=== PATIENT | male | born 1980 | race Hispanic/Latino ===

== ENCOUNTER 2020-01-14 03:05 | Observation (INO) ==
[2020-01-14] MEDS ORDERED: DILTIAZEM HCL 5 MG/ML VIAL IV ONE ×3 (03:15→03:31)
--- NOTE | 2020-01-14 03:23 | ERNOTE ---
Neuro HPI ER Record Presenting Symptoms: other - seizure activity Time Seen by Provider: 01/14/20 03:11 Source: patient, EMS Exam Limitations: no limitations Immunizations: IMMUNIZATION HX Immunizations Up to Date Yes History of Influenza Vaccine No Hx Pneumococcal Vaccination No Allergies/Adverse Reactions: Allergies Allergy/AdvReac Type Severity Reaction Status Date / Time No Known Allergies Allergy Verified 01/14/20 03:16 Home Medications: HOME MEDICATIONS NK 01/14/20 [Last Taken Unknown] - History of Present Illness Narrative: EMS was called out to her residence with a 39-year-old male with seizure-like activity. Upon arrival the patient was confused but soon began to be more alert and awake. The time he arrived to our facility he was alert and awake, oriented x4. Patient cannot give us any details of the episode. Onset: sudden onset Severity: moderate - Character of Deficits Baseline Cognition: Present: alert, oriented x 4 Baseline Gait: Present: walks w/o assistance Associated Symptoms: Reports: none Review of Systems - Review of Systems Constitutional: Absent: recent illness, fever, chills EYE: Absent: vision changes ENT: Absent: nose congestion, nasal drainage Respiratory: Absent: shortness of breath, cough Cardiology: Present: palpitations. Absent: chest pain Gastrointestinal/Abdominal: Absent: nausea, vomiting Musculoskeletal: Absent: back pain, muscle pain Skin: Absent: rash Neurological: Present: See HPI. Absent: headache, dizziness/light-headedness Endocrine: Absent: excessive sweating Medical History (Last Reviewed 01/14/20 @ 03:22 by Krish Cardozo DO) Generalized anxiety disorder (Chronic) Onset Date: Unknown Major depression (Chronic) Onset Date: Unknown Alcohol dependence (Chronic) Onset Date: Unknown Anxiety Onset Date: Unknown Hypertension Onset Date: Unknown Outbursts of anger Onset Date: Unknown Depression Onset Date: Unknown Gout Onset Date: Unknown Sarcoidosis Onset Date: Unknown Bruised ribs Onset Date: Unknown 12/01 Fall (on) (from) other stairs and steps, sequela Onset Date: Unknown 11/2018 Suicidal behavior with attempted self-injury Onset Date: Unknown "slit wrist" 05/1999 and 11/2014 Surgical History: Surgical History (Last Reviewed 01/14/20 @ 03:22 by Krish Cardozo DO) No pertinent past surgical history Family History: Family History (Last Reviewed 01/14/20 @ 03:22 by Krish Cardozo DO) Mother Hypertension Diabetes FHx: mental illness Father Hypertension FHx: mental illness Grandfather Hypertension maternal Heart disease maternal Diabetes maternal CVA (cerebral vascular accident) paternal FHx: mental illness maternal Grandmother Hypertension maternal Heart disease maternal Diabetes maternal CVA (cerebral vascular accident) maternal and paternal Sister Heart disease FHx: mental illness Brother Heart disease Other Depression Social History: (Last Reviewed 01/14/20 @ 03:22 by Krish Cardozo DO) Social History: longterm: No Marital status: Single lives independently: No household members: family number of children: 0 number of grandchildren: 0 current occupational status: employed current occupation: odd jobs Highest education level completed: GED or equivalent Service: No Tobacco: Smoking Status: Current every day smoker Alcohol: alcohol intake: current Alcohol type: hard liquor Substance Use: substance use type: marijuana, former substance user Dietary Habits: caffeine: Yes Physical Exam - Physical Exam General Appearance: Present: wd/wn, alert, no apparent distress Head Exam: Present: normal inspection, no evidence of injury Eye Exam: Normal inspection: bilateral, PERRL: bilateral, EOMI: bilateral Ears, Nose, Throat: Present: normal except - - Left side of tongue has 2 bite ardon that are superficial, no active bleeding., normal pharynx Neck: Present: normal inspection, nontender, supple, full range of motion Respiratory: Present: no respiratory distress, no accessory muscle use, chest nontender, lungs clear Cardiovascular/Chest: Present: no murmur, tachycardia Gastrointestinal/Abdominal: Present: normal bowel sounds, nontender, nondistended, soft Back Exam: Present: normal inspection, normal range of motion, no vertebral tenderness Extremity Exam: Present: normal inspection, normal range of motion, no edema Neurological Exam: Present: alert, oriented, normal mood/affect, no motor/sensory deficits Skin Exam: Present: normal color, warm/dry Lymphatic Exam: Present: no adenopathy Sushant Coma Scale - Assess Eye Opening: Spontaneous Motor: Obeys Commands Verbal: Oriented - Total Coma Scale Total: 15 Progress - Results and Orders Patient's Lab Results:: I have reviewed the patient's lab results. Results and Orders: Laboratory Tests 01/14/20 01/14/20 01/14/20 03:20 03:20 03:20 WBC 5.4 Hgb 14.8 Hct 43.8 Plt Count 120 L D-Dimer 2.14 H Sodium 131 L Potassium 3.0 L Chloride 90 L Carbon Dioxide 17.9 L Anion Gap 26.1 H BUN 4 L Creatinine 0.97 Est GFR (Non-Af Amer) 91 D Random Glucose 136 H Calcium 9.4 Total Bilirubin 0.7 AST 256 H ALT 109 H Alkaline Phosphatase 191 H Troponin I Less than 0.017 Total Protein 8.6 H Albumin 3.7 Salicylates Less than 2.8 L Acetaminophen Less than 0.2 L Ethyl Alcohol 18.0 H - Vital Signs Patient's Vital Signs:: I have reviewed the patient's vital signs. Vital Signs: Vital Signs 01/14/20 03:06 Temperature 36.6 C Pulse Rate 103 H Respiratory Rate 16 Blood Pressure 155/96 H - EKG EKG #1 EKG: atrial fibrillation, ST depression EKG read: Interp. by hi - CT/Ultrasound CT/Ultrasound Narrative: CT head without: No acute abnormalities of the brain. CTA chest: 1. No thoracic aortic aneurysm or dissection noted. 2. No central or peripheral pulmonary embolus noted. 3. No pericardial effusion. 4. Small focal infiltrate left lower lobe. No pleural effusions. 5. Hepatomegaly with changes of prominent fatty metamorphosis of the liver - Progress/Reassessment Chief Complaint: Seizure Activity Progress:: Improved Progress Note-Subjective: 01/14/20 05:39 Initially got some rate control with Cardizem and Cardizem drip down around 110 -120. His heart rate began going back up and we gave a initial loading dose of digoxin. Patient's heart rate seemed to be going up and was found to be shaking and possibly going through delirium tremors. Patient was given Ativan. Patient did admit that he usually drinks whiskey every day and that he was trying to taper down on his drinking by drinking only beer but was only started on his first beer when this happened 01/14/20 06:[address] Gee he agrees to accept the patient for admission Departure Clinical Impression: Atrial fibrillation with RVR Alcohol withdrawal Qualifiers: Complication of substance-induced condition: uncomplicated Qualified Code(s): F10.230 - Alcohol dependence with withdrawal, uncomplicated - Departure Disposition: Still a patient Condition: Fair
[2020-01-14 03:29] LABS: Hematocrit 43.8 % (42.0-52.0); Hemoglobin 14.8 gm/dL (13.5-18.0); Mean Corpuscular Hemoglobin 31.8 pg (27-31); Mean Corpuscular Hgb Conc 33.8 g/dl (32-36); Mean Platelet Volume 9.2 fl (8-11.3); Neutrophil # 2.9 K/mm3 (1.3-6.0); Neutrophil % 52.4 % (42-75.0); Platelet Count 120 K/mm3 (150-450); Red Blood Count 4.66 M/mm3 (4.7-6.0); Red Cell Distribution Width 15.1 % (11.5-14.0); White Blood Count 5.4 K/mm3 (4.0-10.5)
[2020-01-14] MEDS: DILTIAZEM HCL 125 MG in DEXTROSE 5 % IN WATER 100 ML IV PRN ×4 (03:43→13:06)
[2020-01-14 03:46] LABS: ALT 109 U/L (19-67); AST 256 U/L (0-48); Albumin * 3.7 gm/dl (3.4-5.0); Alkaline Phosphatase * 191 U/L (50-170); Anion Gap 26.1 mmol/L (6.8-13.8); BUN/Creatinine Ratio 4.1 (9.0-21.6); Bilirubin, Total 0.7 mg/dL (0.0-1.1); Blood Urea Nitrogen 4 mg/dL (6-23); Ca. Corrected For Albumin 9.3 mg/dL (8.4-10.2); Calcium * 9.4 mg/dL (7.9-10.9); Carbon Dioxide 17.9 mmol/L (24-32.6); Chloride 90 mmol/L (97-106); Glucose * 136 mg/dL (70-110); Salicylate Less than 2.8 mg/dL (2.8-20.0); Sodium 131 mmol/L (132-142); Total Protein 8.6 gm/dL (6.2-8.2)
[2020-01-14 03:47] LABS: Troponin I Less than 0.017 ng/mL (0.00-0.10)
[2020-01-14 04:31] LABS: Urine Bilirubin Negative (NEGATIVE); Urine Blood 25 /ul (NEGATIVE); Urine Ketone Negative (NEGATIVE); Urine Nitrite Negative (NEGATIVE); Urine Protein 15 mg/dL (NEGATIVE); Urine Urobilinogen Normal (NORMAL); Urine pH 7.5 pH (5.0-7.0)
[2020-01-14 04:39] LABS: Urine Appearance Clear (CLEAR); Urine Bacteria None Seen; Urine Color Yellow; Urine RBC None Seen /hpf (0-5); Urine WBC None Seen /hpf (0-5)
[2020-01-14 04:44] LABS: Cocaine Ur Negative (NEGATIVE); Urine Barbiturate Negative (NEGATIVE); Urine Benzodiazepines Negative (NEGATIVE); Urine Opiates Negative (NEGATIVE); Urine PCP Negative (NEGATIVE); Urine THC Negative (NEGATIVE)
[2020-01-14] MEDS ORDERED: DIGOXIN 0.25 MG/ML AMPUL IV ONE (05:04)
[2020-01-14] MEDS ORDERED: METOPROLOL TARTRATE 1 MG/ML AMPUL IV ONE ×3 (05:39→06:25)
[2020-01-14] MEDS ORDERED: LORazepam 2 MG/ML DISP.SYRIN IV ONE (05:42)
[2020-01-14] MEDS ORDERED: LORazepam 2 MG/ML DISP.SYRIN IV PRN ×3 (05:48)
[2020-01-14] MEDS: LORazepam 1 MG TABLET PO SCH ×3 (06:22→17:44)
[2020-01-14] MEDS: MULTIVIT INFUSN,ADULT 4,VIT K 10 ML, THIAMINE HCL 100 MG in NORMAL SALINE 1,000 ML IV SCH (06:22)
[2020-01-14] MEDS ORDERED: ENOXAPARIN SODIUM 100 MG/ML SYRG SC SCH (06:45)
[2020-01-14] MEDS ORDERED: FLU VACC QS2020-21(6MOS UP)/PF 60 MCG/0.5 ML SYRINGE IM ONE ×2 (07:53→09:00)
--- NOTE | 2020-01-14 08:30 | HP ---
Chief Complaint - Chief Complaint Date of Service: 01/14/20 Time of Service: 08:30 Chief Complaint: possible seizure activity History of Present Illness: Rickie Govea is a 39-year-old white male with past medical history significant for major depression, generalized anxiety disorder, hypertension, sarcoidosis who was brought to the emergency room by EMS early this morning of 01/14/2020 for possible seizure activity. As per his mother on the emergency room notes they heard the patient shouting and when they went to the room she saw him choking on his saliva and got stiff and unresponsive for about 10 minutes. He was having also tremors. As per EMS notes he had shakiness and had blood in his mouth. The patient says that he started drinking at the age of 14. He was up to a gallon of vodka a day and decided to detox himself about 2 months ago and started drinking only beers. As per nurse's notes he also stopped his medications that was prescribed by his psychologist. He has been having on and of palpitations that would go away when he starts drinking. Last night however he felt that his heart was jumping out of his chest and thumping so loud that he thought he was having a heart attack. When he got to the emergency room the patient was already awake alert oriented x3 but was found to have atrial fibrillation with rapid ventricular response of 170. His blood pressure went up as 178/103. He was started on Cardizem boluses x2 and IV is Cardizem drip. His hemoglobin was 14.8, white blood cell count of 5.4, platelet of 120, potassium of 3, AST/ ALT of 256 and 109, alkaline phosphatase of 191, total protein of 8.6, normal BUN/creatinine. His d-dimer was elevated and so CT scan of the chest following PE protocol was done and it was negative, it did show a patchy infiltrates, correlate for viral pneumonia or central granulomatous disease like sarcoidosis. His head CT scan showed cortical atrophy which is significant for his age but no acute intracranial process. He was given IV Ativan and was admitted to the floor for further evaluation and treatment. Medical History (Last Reviewed 01/14/20 @ 07:37 by Jude Cisneros RN) Generalized anxiety disorder (Chronic) Onset Date: Unknown Major depression (Chronic) Onset Date: Unknown Alcohol dependence (Chronic) Onset Date: Unknown Anxiety Onset Date: Unknown Hypertension Onset Date: Unknown Outbursts of anger Onset Date: Unknown Depression Onset Date: Unknown Gout Onset Date: Unknown Sarcoidosis Onset Date: Unknown Bruised ribs Onset Date: Unknown 12/01 Fall (on) (from) other stairs and steps, sequela Onset Date: Unknown 11/2018 Suicidal behavior with attempted self-injury Onset Date: Unknown "slit wrist" 05/1999 and 11/2014 Surgical History: Surgical History (Last Reviewed 01/14/20 @ 07:37 by Jude Cisneros RN) No pertinent past surgical history Family History: Family History (Last Reviewed 01/14/20 @ 07:37 by Jude Cisneros RN) Mother Hypertension Diabetes FHx: mental illness Father Hypertension FHx: mental illness Grandfather Hypertension maternal Heart disease maternal Diabetes maternal CVA (cerebral vascular accident) paternal FHx: mental illness maternal Grandmother Hypertension maternal Heart disease maternal Diabetes maternal CVA (cerebral vascular accident) maternal and paternal Sister Heart disease FHx: mental illness Brother Heart disease Other Depression Social History: (Last Updated 01/14/20 @ 07:41 by Jude Cisneros RN) Social History: senior care: No Marital status: Single lives independently: No household members: family number of children: 0 number of grandchildren: 0 current occupational status: employed current occupation: odd jobs Highest education level completed: GED or equivalent Service: No Tobacco: Smoking Status: Former smoker Smoking End Date: 11/14/19 Smoking End Date comment: stopped 2 mo ago Alcohol: alcohol intake: current Alcohol type: hard liquor alcohol intake frequency: other Substance Use: substance use type: marijuana, former substance user Dietary Habits: caffeine: Yes Review Of Systems (GEN) - Review of Systems Generalized/Overall Review: Present: Weakness - Muscle. Absent: Chills, Fever EENTM: Absent: Blurred Vision Respiratory: Absent: Cough, Shortness of Breath, Orthopnea, Wheezing Cardiac: Present: Palpitations. Absent: Chest Pain, Edema Abdominal: Absent: Nausea, Vomiting, Abdominal Pain Genitourinary: Absent: Urgency, Frequency Musculoskeletal: Absent: Joint Pain, Back Pain Neurological: Present: Anxiety, Depressed. Absent: Headache Skin: Absent: Rash, Bruising Endocrine: Absent: Intolerance to Cold, Intolerance to Heat Misc: All systems neg except as marked Immunizations: IMMUNIZATION HX Immunizations Up to Date Yes History of Influenza Vaccine No Hx Pneumococcal Vaccination No Allergies/Adverse Reactions: Allergies Allergy/AdvReac Type Severity Reaction Status Date / Time No Known Allergies Allergy Verified 01/14/20 07:38 Home Medications: HOME MEDICATIONS acamprosate 333 mg tablet,delayed release 666 mg PO TID #180 tab 01/14/20 [Last Taken Unknown] lorazepam 1 mg tablet 1 mg PO TID PRN #90 tab 01/14/20 [Last Taken Unknown] naltrexone 50 mg tablet 50 mg PO HS #30 tab 01/14/20 [Last Taken Unknown] vortioxetine 10 mg tablet 10 mg PO DAILY #30 tab 01/14/20 [Last Taken Unknown] Exam - Exam Vital Signs: Vital Signs - Last Taken Temp 37.8 C 01/14/20 07:36 Pulse 124 H 01/14/20 07:36 Resp 22 H 01/14/20 07:36 BP 124/91 H 01/14/20 07:36 Pulse Ox 91 L 01/14/20 07:36 Constitutional: Present: Alert, Oriented x3, Cooperative ENT Exam: Present: hearing grossly normal Eye Exam: bilateral eye: normal inspection, PERRL, EOMI Neck: Present: supple. Absent: lymphadenopathy (R), lymphadenopathy (L) Respiratory: Present: normal breath sounds, crackles - Faint left lower lung field, No rales, No wheezing Cardiovascular/Chest: Present: no JVD, tachycardia, irregularly irregular Abdomen: Present: Normal bowel sounds, soft, nontender, nondistended Extremity: Present: no pedal edema, no calf tenderness Neurologic: Present: crop research scientist II-XII nml as tested, no motor/sensory deficits, oriented x 3 Thoughts: Present: other - Anxious Diagnostic Studies: Abnormal Lab Results 01/14/20 01/14/20 01/14/20 Range/Units 03:20 03:20 03:20 RBC 4.66 L (4.7-6.0) M/mm3 MCH 31.8 H (27-31) pg RDW 15.1 H (11.5-14.0) % Plt Count 120 L (150-450) K/mm3 Monocytes % 15.5 H (0.0-9) % D-Dimer 2.14 H (0.19-0.49) ug/mL Sodium 131 L (132-142) mmol/L Potassium 3.0 L (3.4-4.6) mmol/L Chloride 90 L (97-106) mmol/L Carbon Dioxide 17.9 L (24-32.6) mmol/L Anion Gap 26.1 H (6.8-13.8) mmol/L BUN 4 L (6-23) mg/dL BUN/Creatinine Ratio 4.1 L (9.0-21.6) Random Glucose 136 H (70-110) mg/dL AST 256 H (0-48) U/L ALT 109 H (19-67) U/L Alkaline Phosphatase 191 H (50-170) U/L Total Protein 8.6 H (6.2-8.2) gm/dL Urine Protein (NEGATIVE) mg/dL Urine Blood (NEGATIVE) /ul Salicylates Less than 2.8 L (2.8-20.0) mg/dL Acetaminophen Less than 0.2 L (10.0-30.0) mcg/mL Ethyl Alcohol 18.0 H (0.0-10.0) mg/dL 01/14/20 Range/Units 04:23 RBC (4.7-6.0) M/mm3 MCH (27-31) pg RDW (11.5-14.0) % Plt Count (150-450) K/mm3 Monocytes % (0.0-9) % D-Dimer (0.19-0.49) ug/mL Sodium (132-142) mmol/L Potassium (3.4-4.6) mmol/L Chloride (97-106) mmol/L Carbon Dioxide (24-32.6) mmol/L Anion Gap (6.8-13.8) mmol/L BUN (6-23) mg/dL BUN/Creatinine Ratio (9.0-21.6) Random Glucose (70-110) mg/dL AST (0-48) U/L ALT (19-67) U/L Alkaline Phosphatase (50-170) U/L Total Protein (6.2-8.2) gm/dL Urine Protein 15 H (NEGATIVE) mg/dL Urine Blood 25 H (NEGATIVE) /ul Salicylates (2.8-20.0) mg/dL Acetaminophen (10.0-30.0) mcg/mL Ethyl Alcohol (0.0-10.0) mg/dL Laboratory Results WBC 5.4 K/mm3 (4.0-10.5) 01/14/20 03:20 RBC 4.66 M/mm3 (4.7-6.0) L 01/14/20 03:20 Hgb 14.8 gm/dL (13.5-18.0) 01/14/20 03:20 Hct 43.8 % (42.0-52.0) 01/14/20 03:20 MCV 94.0 fl (78-100) 01/14/20 03:20 MCH 31.8 pg (27-31) H 01/14/20 03:20 MCHC 33.8 g/dl (32-36) 01/14/20 03:20 RDW 15.1 % (11.5-14.0) H 01/14/20 03:20 Plt Count 120 K/mm3 (150-450) L 01/14/20 03:20 MPV 9.2 fl (8-11.3) 01/14/20 03:20 Immature Gran % (Auto) 0.40 % (0.001-0.429) 01/14/20 03:20 Immature Gran # (Auto) 0.02 K/mm3 (0.000-0.0310) 01/14/20 03:20 Neutrophils % 52.4 % (42-75.0) 01/14/20 03:20 Lymphocytes % 30.9 % (20-51) 01/14/20 03:20 Monocytes % 15.5 % (0.0-9) H 01/14/20 03:20 Eosinophils % 0.4 % (0.0-3.0) 01/14/20 03:20 Basophils % 0.4 % (0.0-1.0) 01/14/20 03:20 Nucleated RBC % 0.0 k/mm3 (0-1) 01/14/20 03:20 Neutrophils # 2.9 K/mm3 (1.3-6.0) 01/14/20 03:20 Lymphocytes # 1.68 k/mm3 (1.5-3.5) 01/14/20 03:20 Monocytes # 0.8 k/mm3 (0.0-1.0) 01/14/20 03:20 Eosinophils # 0.0 k/mm3 (0.0-0.7) 01/14/20 03:20 Absolute Basophils 0.0 k/mm3 (0.0-0.1) 01/14/20 03:20 D-Dimer 2.14 ug/mL (0.19-0.49) H 01/14/20 03:20 Sodium 131 mmol/L (132-142) L 01/14/20 03:20 Plasma Sodium 132 mmol/L (130-142) 01/14/20 03:20 Potassium 3.0 mmol/L (3.4-4.6) L 01/14/20 03:20 Chloride 90 mmol/L (97-106) L 01/14/20 03:20 Carbon Dioxide 17.9 mmol/L (24-32.6) L 01/14/20 03:20 Anion Gap 26.1 mmol/L (6.8-13.8) H 01/14/20 03:20 BUN 4 mg/dL (6-23) L 01/14/20 03:20 Creatinine 0.97 mg/dL (0.4-1.4) 01/14/20 03:20 Est GFR (Non-Af Amer) 91 mL/min (60-130) D 01/14/20 03:20 BUN/Creatinine Ratio 4.1 (9.0-21.6) L 01/14/20 03:20 Random Glucose 136 mg/dL (70-110) H 01/14/20 03:20 Calcium 9.4 mg/dL (7.9-10.9) 01/14/20 03:20 Calcium Adj for Albumin 9.3 mg/dL (8.4-10.2) 01/14/20 03:20 Total Bilirubin 0.7 mg/dL (0.0-1.1) 01/14/20 03:20 AST 256 U/L (0-48) H 01/14/20 03:20 ALT 109 U/L (19-67) H 01/14/20 03:20 Alkaline Phosphatase 191 U/L (50-170) H 01/14/20 03:20 Troponin I Less than 0.017 ng/mL (0.00-0.10) 01/14/20 03:20 Total Protein 8.6 gm/dL (6.2-8.2) H 01/14/20 03:20 Albumin 3.7 gm/dl (3.4-5.0) 01/14/20 03:20 Urine Color Yellow 01/14/20 04:23 Urine Appearance Clear (CLEAR) 01/14/20 04:23 Urine pH 7.5 pH (5.0-7.0) 01/14/20 04:23 Ur Specific Dillon 1.010 SP.GR. (1.005-1.030) 01/14/20 04:23 Urine Protein 15 mg/dL (NEGATIVE) H 01/14/20 04:23 Urine Glucose (UA) Negative mg/dL (NEGATIVE) 01/14/20 04:23 Urine Ketones Negative mg/dL (NEGATIVE) 01/14/20 04:23 Urine Blood 25 /ul (NEGATIVE) H 01/14/20 04:23 Urine Nitrate Negative (NEGATIVE) 01/14/20 04:23 Urine Bilirubin Negative mg/dl (NEGATIVE) 01/14/20 04:23 Prot Sulfosalicylic Acd Negative mg/dL (0) 01/14/20 04:23 Urine Urobilinogen Normal EU/dl (NORMAL) 01/14/20 04:23 Ur Leukocyte Esterase Negative /ul (NEGATIVE) 01/14/20 04:23 Urine RBC None seen /hpf (0-5) 01/14/20 04:23 Urine WBC None seen /hpf (0-5) 01/14/20 04:23 Ur Epithelial Cells None seen /hpf (0-5) 01/14/20 04:23 Urine Bacteria None seen (NONE) 01/14/20 04:23 Urine Culture Comments No culture indicated 01/14/20 04:23 Salicylates Less than 2.8 mg/dL (2.8-20.0) L 01/14/20 03:20 Urine Opiates Screen Negative (NEGATIVE) 01/14/20 04:23 Acetaminophen Less than 0.2 mcg/mL (10.0-30.0) L 01/14/20 03:20 Barbiturate Screen Negative (NEGATIVE) 01/14/20 04:23 Ur Phencyclidine Scrn Negative (NEGATIVE) 01/14/20 04:23 Urine Amphetamine Negative (NEGATIVE) 01/14/20 04:23 U Benzodiazepines Scrn Negative (NEGATIVE) 01/14/20 04:23 Urine Cocaine Screen Negative (NEGATIVE) 01/14/20 04:23 Urine Marijuana (THC) Negative (NEGATIVE) 01/14/20 04:23 Ethyl Alcohol 18.0 mg/dL (0.0-10.0) H 01/14/20 03:20 Assessment/Plan - Narrative Narrative: Rickie Govea is a 39-year-old male who was admitted for seizure-like activity and atrial fibrillation with rapid ventricular response. Although this is the first time he was told he had atrial fibrillation it is unclear whether this is of new onset as he has been having intermittent, on and off palpitations in the past. We will have to anticoagulate him for at least 4 to 6 weeks before considering electrocardioversion if patient does not convert spontaneously by himself. In the meantime we will continue with his IV Cardizem drip for rate control and will likely start him on some metoprolol titrate orally if his blood pressure will allow. We will add TSH and do an echocardiogram today. 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 We will add magnesium to his blood work. His seizure-like activity could be due to his alcohol withdrawal and we have him on our withdrawal protocol following CIWA protocol with IV Ativan coverage. We will also get a consult from Amrita Davies for his major depression, generalized anxiety disorder and alcohol dependence. His elevated LFTs and low platelet count are likely secondary to his alcohol abuse with possible hepato-splenomegaly. His CTS findings of possible viral peumonia, pneumonitis or sarcoidosis is likely due to his h/o sarcoidosis and possible aspiration pneumonitis from his alcohol withdrawal seizure. His WBC is normal. Will also add CK to his labs. - Assessment/Plan (1) Atrial fibrillation with RVR Problem: Acute (2) Alcohol withdrawal seizure Problem: Acute Qualifiers: Complication of substance-induced condition: uncomplicated Qualified Code(s): F10.230 - Alcohol dependence with withdrawal, uncomplicated; R56.9 - Unspecified convulsions (3) Alcohol withdrawal Problem: Acute Qualifiers: Complication of substance-induced condition: uncomplicated Qualified Code(s): F10.230 - Alcohol dependence with withdrawal, uncomplicated (4) ETOH abuse Problem: Acute (5) Alcohol dependence Problem: Chronic Qualifiers: Substance use status: uncomplicated Qualified Code(s): F10.20 - Alcohol dependence, uncomplicated (6) Elevated LFTs Problem: Acute (7) Thrombocytopenia Problem: Acute (8) Hypokalemia Problem: Acute (9) History of sarcoidosis Problem: Acute
[2020-01-14] MEDS ORDERED: POTASSIUM CHLORIDE 10 MEQ TABLET.SA PO SCH (09:00)
[2020-01-14 09:21] LABS: Magnesium 1.6 mg/dL (1.2-2.8)
[2020-01-14] MEDS ORDERED: METOPROLOL TARTRATE 25 MG TABLET PO SCH (09:48)
--- NOTE | 2020-01-14 12:04 | CONS ---
[facility] - General Date of Service: 01/14/20 Source: RN/MD, RN notes reviewed, old records - History of Present Illness Allergies/Adverse Reactions: Allergies No Known Allergies Allergy (Verified 01/14/20 07:38) Home Medications: Home Medications Medication Instructions Recorded Last Taken NK 01/14/20 Unknown Procedures CLOSURE SKIN & SUBCUTANEOUS NEC (12/31/09) Closed reduction of fracture without internal fixation, carpals and metacarpals (11/30/01) Closure of skin and subcutaneous tissue of other sites (10/27/05) Medications - Medications Current Medications: Current Medications Enoxaparin Sodium (Lovenox) 70 mg 1 mg/kg (70 mg) SC Q12H GINNY Stop: 02/13/20 06:46 Last Admin: 01/14/20 08:51 Dose: 70 mg Documented by: Diltiazem HCl 125 mg/ Dextrose (/Water) 125 mls @ 0 mls/hr IV TITR PRN; Protocol PRN Reason: Arrhythmia Stop: 02/13/20 03:28 Last Titration: 01/14/20 04:27 Dose: 15 mg/hr, 15 mls/hr Documented by: Parenteral Vitamin Supplement 10 ml/ Thiamine HCl 100 mg/Sodium Chloride 1,011 mls @ 250 mls/hr IV Q24H GINNY Stop: 02/13/20 06:01 Last Infusion: 01/14/20 11:00 Dose: Infused Documented by: Lorazepam (Ativan) 1 mg PO Q6H GINNY Stop: 02/13/20 06:01 Last Admin: 01/14/20 06:22 Dose: 1 mg Documented by: Lorazepam (Ativan) 1 mg IV Q1H PRN PRN Reason: Alcohol Withdrawal Stop: 02/13/20 05:49 Last Admin: 01/14/20 06:03 Dose: 1 mg Documented by: Metoprolol Tartrate (Lopressor) 25 mg PO BID GINNY Stop: 02/13/20 09:49 Last Admin: 01/14/20 10:25 Dose: 25 mg Documented by: Physical Examination - Exam Narrative: 01/14/2020 11:35 am. Unable to see patient at this time due to COVID testing that was performed in the past 10 minutes. According to nurse, patient stopped his medications several months ago and was drinking up to a gallon of vodka per day. Recently changed to beer to try to wean himself off alcohol and had a seizure. Patient is known to me because he is an established patient. Previous medications were working well when he was taking them. Will restart Campral and Naltrexone for alcohol dependence, Lorazepam 1 mg TID PRN for anxiety and Trintellix 10 mg for antidepressant. Written instructions left with nurse. Appointment scheduled for telehealth follow up on Saturday01/18/20 at 11:30 am. Vital Signs: Vital Signs - Last Taken Temp 38.0 C 01/14/20 09:36 Pulse 140 H 01/14/20 10:25 Resp 36 H 01/14/20 09:36 BP 142/98 H 01/14/20 10:25 Pulse Ox 90 L 01/14/20 09:36 O2 Oxygen Delivery Method Room Air - Results and Findings: Lab/Microbiology results last 24 hrs: Abnormal/Pending Laboratory Last 24 HRS 01/14/20 01/14/20 01/14/20 04:23 03:20 03:20 RBC MCH RDW Plt Count Monocytes % D-Dimer 2.14 H Sodium 131 L Potassium 3.0 L Chloride 90 L Carbon Dioxide 17.9 L Anion Gap 26.1 H BUN 4 L BUN/Creatinine Ratio 4.1 L Random Glucose 136 H AST 256 H ALT 109 H Alkaline Phosphatase 191 H Total Protein 8.6 H Urine Protein 15 H Urine Blood 25 H Salicylates Less than 2.8 L Acetaminophen Less than 0.2 L Ethyl Alcohol 18.0 H 01/14/20 03:20 RBC 4.66 L MCH 31.8 H RDW 15.1 H Plt Count 120 L Monocytes % 15.5 H D-Dimer Sodium Potassium Chloride Carbon Dioxide Anion Gap BUN BUN/Creatinine Ratio Random Glucose AST ALT Alkaline Phosphatase Total Protein Urine Protein Urine Blood Salicylates Acetaminophen Ethyl Alcohol - Assessments/Findings (1) Alcohol dependence Problem: Chronic Qualifiers: Substance use status: uncomplicated Qualified Code(s): F10.20 - Alcohol dependence, uncomplicated
[2020-01-14] MEDS: POTASSIUM CHLORIDE IN WATER 100 ML IV SCH ×2 (12:15→13:07)
[2020-01-14] MEDS: METOPROLOL TARTRATE 50 MG TABLET PO SCH (21:43)
[2020-01-14] MEDS: APIXABAN 5 MG TABLET PO SCH (21:43)
[2020-01-15] MEDS: LORazepam 1 MG TABLET PO SCH ×2 (00:21→05:54)
[2020-01-15] MEDS: MULTIVIT INFUSN,ADULT 4,VIT K 10 ML, THIAMINE HCL 100 MG in NORMAL SALINE 1,000 ML IV SCH (06:58)
[2020-01-15 07:11] LABS: Hematocrit 41.8 % (42.0-52.0); Hemoglobin 13.8 gm/dL (13.5-18.0); Mean Cell Volume 96.1 fl (78-100); Mean Corpuscular Hemoglobin 31.7 pg (27-31); Mean Platelet Volume 10.4 fl (8-11.3); Neutrophil % 64.9 % (42-75.0); Platelet Count 113 K/mm3 (150-450); Red Blood Count 4.35 M/mm3 (4.7-6.0); White Blood Count 6.2 K/mm3 (4.0-10.5)
[2020-01-15 07:16] LABS: Albumin * 3.1 gm/dl (3.4-5.0); Anion Gap 14.1 mmol/L (6.8-13.8); BUN/Creatinine Ratio 9.9 (9.0-21.6); Ca. Corrected For Albumin 9.3 mg/dL (8.4-10.2); Calcium * 8.9 mg/dL (7.9-10.9); Carbon Dioxide 26.1 mmol/L (24-32.6); Potassium 3.2 mmol/L (3.4-4.6); Total Protein 7.4 gm/dL (6.2-8.2)
[2020-01-15] MEDS ORDERED: PANTOPRAZOLE SODIUM 40 MG TABLET.EC PO SCH (08:00)
[2020-01-15] MEDS ORDERED: LORazepam 1 MG TABLET PO PRN (08:03)
[2020-01-15] MEDS ORDERED: POTASSIUM CHLORIDE 10 MEQ TABLET.SA PO ONE (08:21)
--- NOTE | 2020-01-15 08:27 | PN ---
Progess Note - Interim Date: 01/15/20 Time: 08:22 Narrative: 01/15/20 08:22 Patient converted to NSR sponatneously yeterday at around 2 pm and has remained in sinus. Discussed with patient that his his score is 1 and being a male needs to be on an anticoagulant as he also has h/o intermittent palpitations in the past(PAF/intermittent AFib?). He was also warned that being on a blood thinner increases his risk for bleeding . Echo was essentially WNL except for mild MR and trace CT. but dilated IVC.
[2020-01-15] MEDS ORDERED: VORTIOXETINE HYDROBROMIDE 10 MG TABLET PO SCH (09:00)
[2020-01-15] MEDS ORDERED: FLU VACC QS2020-21(6MOS UP)/PF 60 MCG/0.5 ML SYRINGE IM ONE (09:00)
[2020-01-15] MEDS ORDERED: ACAMPROSATE CALCIUM 333 MG TABLET PO SCH (09:00)
[2020-01-15] MEDS: METOPROLOL TARTRATE 50 MG TABLET PO SCH (09:10)
[2020-01-15] MEDS: APIXABAN 5 MG TABLET PO SCH (09:10)
--- NOTE | 2020-01-15 12:16 | DS ---
(1) Atrial fibrillation with RVR Problem: Resolved (2) Alcohol withdrawal seizure Problem: Resolved Qualifiers: Complication of substance-induced condition: uncomplicated Qualified Code(s): F10.230 - Alcohol dependence with withdrawal, uncomplicated; R56.9 - Unspecified convulsions (3) Alcohol withdrawal Problem: Resolved Qualifiers: Complication of substance-induced condition: uncomplicated Qualified Code(s): F10.230 - Alcohol dependence with withdrawal, uncomplicated (4) ETOH abuse Problem: Chronic (5) Alcohol dependence Problem: Chronic Qualifiers: Substance use status: uncomplicated Qualified Code(s): F10.20 - Alcohol dependence, uncomplicated (6) Elevated LFTs Problem: Acute (7) Thrombocytopenia Problem: Acute (8) Hypokalemia Problem: Acute (9) History of sarcoidosis Problem: Acute Date of Discharge:: 01/15/20 Hospital Course: Rickie Govea is a 39-year-old white male with past medical history significant for major depression, generalized anxiety disorder, hypertension, sarcoidosis who was brought to the emergency room by EMS early this morning of 01/14/2020 for possible seizure activity. As per his mother on the emergency room notes they heard the patient shouting and when they went to the room she saw him choking on his saliva and got stiff and unresponsive for about 10 minutes. He was having also tremors. As per EMS notes he had shakiness and had blood in his mouth. The patient says that he started drinking at the age of 14. He was up to a gallon of vodka a day and decided to detox himself about 2 months ago and started drinking only beers. As per nurse's notes he also stopped his medications that was prescribed by his psychologist. He has been having on and of palpitations that would go away when he starts drinking. Last night however he felt that his heart was jumping out of his chest and thumping so loud that he thought he was having a heart attack. When he got to the emergency room the patient was already awake alert oriented x3 but was found to have atrial fibrillation with rapid ventricular response of 170. His blood pressure went up as 178/103. He was started on Cardizem boluses x2 and IV is Cardizem drip. His hemoglobin was 14.8, white blood cell count of 5.4, platelet of 120, potassium of 3, AST/ ALT of 256 and 109, alkaline phosphatase of 191, total protein of 8.6, normal BUN/creatinine. His d-dimer was elevated and so CT scan of the chest following PE protocol was done and it was negative, it did show a patchy infiltrates, correlate for viral pneumonia or central granulomatous disease like sarcoidosis. His head CT scan showed cortical atrophy which is significant for his age but no acute intracranial process. He was given IV Ativan and was admitted to the floor for further evaluation and treatment. His TSH was normal . He CK was normal. His patchy infiltrate was likely due to his history of sarcoidosis. He converted to NSR spontaneously in less than 24 hours. He was started on Metoprolol tartrate BID. His Echo showed normal EF, no diastolic dysfunction, mild MR and trace DE. It did show dilated IVC which is likely due to portal hypertension than cardiac. We did talk about anticoagulation but because of his dilated IVC and possible portal hypertension, his risk for bleeding from possible varices is higher than risk of stroke. He agrees to not be on anticoagulation. He will need to follow with Amrita and needs to follow up with a PCP. He can follow up with sd x 1. Procedures Performed: none Results and Findings: Lab Pending Results 01/14/20 03:20: WBC 5.4, RBC 4.66 L, Hgb 14.8, Hct 43.8, MCV 94.0, MCH 31.8 H, MCHC 33.8, RDW 15.1 H, Plt Count 120 L, MPV 9.2, Immature Gran % (Auto) 0.40, Immature Gran # (Auto) 0.02, Neutrophils % 52.4, Lymphocytes % 30.9, Monocytes % 15.5 H, Eosinophils % 0.4, Basophils % 0.4, Nucleated RBC % 0.0, Neutrophils # 2.9, Lymphocytes # 1.68, Monocytes # 0.8, Eosinophils # 0.0, Absolute Basophils 0.0 01/14/20 03:20: Sodium 131 L, Plasma Sodium 132, Potassium 3.0 L, Chloride 90 L, Carbon Dioxide 17.9 L, Anion Gap 26.1 H, BUN 4 L, Creatinine 0.97, Est GFR (Non- Af Amer) 91 D, BUN/Creatinine Ratio 4.1 L, Random Glucose 136 H, Calcium 9.4, Calcium Adj for Albumin 9.3, Total Bilirubin 0.7, AST 256 H, ALT 109 H, Alkaline Phosphatase 191 H, Troponin I Less than 0.017, Total Protein 8.6 H, Albumin 3.7, Salicylates Less than 2.8 L, Acetaminophen Less than 0.2 L, Ethyl Alcohol 18.0 H 01/14/20 03:20: D-Dimer 2.14 H 01/14/20 03:20: Magnesium 1.6, TSH (Reflex) 1.860 01/14/20 03:20: Creatine Kinase 202 01/14/20 04:23: Urine Color Yellow, Urine Appearance Clear, Urine pH 7.5, Ur Specific [place] 1.010, Urine Protein 15 H, Urine Glucose (UA) Negative, Urine Ketones Negative, Urine Blood 25 H, Urine Nitrate Negative, Urine Bilirubin Negative, Prot Sulfosalicylic Acd Negative, Urine Urobilinogen Normal, Ur Leukocyte Esterase Negative, Urine RBC None seen, Urine WBC None seen, Ur Epithelial Cells None seen, Urine Bacteria None seen, Urine Culture Comments No culture indicated 01/14/20 04:23: Urine Opiates Screen Negative, Barbiturate Screen Negative, Ur Phencyclidine Scrn Negative, Urine Amphetamine Negative, U Benzodiazepines Scrn Negative, Urine Cocaine Screen Negative, Urine Marijuana (THC) Negative 01/14/20 11:23: SARS-CoV-2 (PCR) Not detected 01/15/20 06:57: WBC 6.2, RBC 4.35 L, Hgb 13.8, Hct 41.8 L, MCV 96.1, MCH 31.7 H, MCHC 33.0, RDW 15.0 H, Plt Count 113 L, MPV 10.4, Immature Gran % (Auto) 0.30, Immature Gran # (Auto) 0.02, Neutrophils % 64.9, Lymphocytes % 18.9 L, Monocytes % 15.3 H, Eosinophils % 0.3, Basophils % 0.3, Nucleated RBC % 0.0, Neutrophils # 4.0, Lymphocytes # 1.16 L, Monocytes # 0.9, Eosinophils # 0.0, Absolute Basophils 0.0 01/15/20 06:57: Sodium 134, Plasma Sodium 134, Potassium 3.2 L, Chloride 97, Carbon Dioxide 26.1, Anion Gap 14.1 H, BUN 8 D, Creatinine 0.81, Est GFR (Non- Af Amer) 112 D, BUN/Creatinine Ratio 9.9, Random Glucose 92 D, Calcium 8.9, Calcium Adj for Albumin 9.3, Total Bilirubin 1.0, AST 153 H, ALT 87 H, Alkaline Phosphatase 154, Total Protein 7.4, Albumin 3.1 L Discharge Location: Home Disposition: Home self-care Condition: Stable Discharge Activity: Activity as tolerated Discharge Diet: Low salt Additional Patient Instructions (free text): Video F/U with Amrita Davies 01/18/20 @ 1130am. Needs to to follow up with PCP in 2 weeks. He can follow up with me x 1. Prescriptions (Any new or edited meds): Metoprolol Tartrate 50 mg PO BID #60 tab Transmission Status: Pending to [facility] #[id number] Complete Home Medications List: Complete Home Medication List: acamprosate 333 mg tablet,delayed release 666 mg PO TID #180 tab 01/14/20 lorazepam 1 mg tablet 1 mg PO TID PRN #90 tab 01/14/20 naltrexone 50 mg tablet 50 mg PO HS #30 tab 01/14/20 vortioxetine 10 mg tablet 10 mg PO DAILY #30 tab 01/14/20 Metoprolol Tartrate 50 mg PO BID #60 tab 01/15/20
[2020-01-15 13:37] VITALS: BP 122/79
[2020-01-15] MEDS ORDERED: NALTREXONE HCL 50 MG TABLET PO SCH (21:00)
--- NOTE | 2020-01-18 13:15 | ECHO ---
This report is available in the EMR
== END 2020-01-15 13:15 | disposition home or self-care (01) ==
LOC: ER 03:05 → MS 06:51 → INTOOBSV 06:51 → MS 07:15
PROVIDERS: ADMIT Internal Medicine; ATTEND Internal Medicine
DX: I10 Essential (primary) hypertension; Z72.0 Tobacco use; E87.6 Hypokalemia; R00.0 Tachycardia, unspecified; Z23 Encounter for immunization; K76.0 Fatty (change of) liver, not elsewhere classified; F10.230 Alcohol dependence with withdrawal, uncomplicated; I48.91 Unspecified atrial fibrillation; D69.6 Thrombocytopenia, unspecified; R56.9 Unspecified convulsions